=== PATIENT | male | born 1935 | race Caucasian/White ===

== ENCOUNTER 2020-03-28 22:27 | Inpatient (IN) | payer OTHER ==
[~2020-03-28] VITALS: Ht 165.1 cm; Wt 91.0 kg
[2020-03-29 04:20] LABS: Urine Bacteria NONE SEEN /hpf (None Seen); Urine Blood Negative /uL (Negative); Urine Mucus FEW (None Seen); Urine Specific Gravity 1.019 (1.001-1.035); Urine WBC <1 /hpf (0 - 3)
[2020-03-29 06:15] LABS: Basophils # (auto) 0.1 10 ^3/uL (0-0.2); Basophils % (auto) 1.5 % (0.0-2.0); Eosinophils # (auto) 0.1 10 ^3/uL (0-0.8); Eosinophils % (auto) 1.7 % (0.0-7.0); Hematocrit 49.3 % (41.0-53.0); Hemoglobin 16.6 g/dL (13.5-17.5); Lymphocytes # (auto) 1.1 10 ^3/uL (0.4-5.4); Lymphocytes % (auto) 18.6 % (10.0-50.0); Mean Corpuscular Hemoglobin 31.3 pg (28.0-32.0); Mean Corpuscular Hgb Conc. 33.7 g/dL (32.0-36.0); Mean Corpuscular Volume 92.8 fL (80.0-100.0); Monocytes # (auto) 0.6 10 ^3/uL (0-1.3); Monocytes % (auto) 10.3 % (0.0-12.0); Neutrophils # (auto) 4.2 10 ^3/uL (1.6-8.6); Neutrophils % (auto) 67.9 % (37.0-80.0); Platelet Count (auto) 202 10^3/uL (140-450); Red Blood Cells 5.31 10^6/uL (4.5-5.90); Red Cell Distribution Width 14.5 % (11.8-14.3); White Blood Cell 6.2 10^3/uL (4.4-10.8)
[2020-03-29 06:45] LABS: Albumin 3.6 g/dL (3.4-5.0); Anion Gap 4 (5-15); Blood Urea Nitrogen 30 mg/dL (7-18); Calcium 8.8 mg/dL (8.5-10.1); Carbon Dioxide 27 mmol/L (21-32); Chloride 99 mmol/L (98-107); Glucose 136 mg/dL (74-106); Potassium 3.8 mmol/L (3.5-5.1); Sodium 130 mmol/L (136-145)
[2020-03-29 06:50] LABS: Alanine Aminotransferase 10 U/L (16-61); Alkaline Phosphatase 70 U/L (45-117); Aspartate Aminotransferase 20 U/L (15-37); BUN/Creatinine Ratio 22.6; Bilirubin, Total 1.3 mg/dL (0.2-1.0); GFR African American 66 mL/min; GFR Non-African American 55 mL/min; Total Protein 7.2 g/dL (6.4-8.2)
[2020-03-29] MEDS ORDERED: ACETAMINOPHEN 325 MG TAB PO PRN (14:30)
[2020-03-29] MEDS ORDERED: HYDROcodone-ACET 5/325MG TAB PO PRN (14:30)
[2020-03-29] MEDS ORDERED: DOCUSATE SOD 100 MG CAP PO PRN (14:30)
[2020-03-29] MEDS ORDERED: MORPHINE SULF INJ 2 MG/ML SYRINGE 1ML IV PRN ×2 (14:30)
[2020-03-29] MEDS ORDERED: NITROGLYCERIN 0.4 MG SL TAB SL PRN ×2 (14:30)
[2020-03-29] MEDS ORDERED: ALUM & MAG HYDROX-SIMETH LIQ(MAALOX) 30 ML PO PRN (14:30)
[2020-03-29] MEDS ORDERED: ONDANSETRON HCL 4 MG/2 ML VIAL IV PRN ×2 (14:30)
[2020-03-29] MEDS ORDERED: LORazepam 0.5 MG TAB PO PRN ×2 (14:30)
--- NOTE | 2020-03-29 16:35 | NUR ---
Telemetry admit from ER: MAGALIS COTTER admitted to Telemetry unit after SBAR received. Patient oriented to ATIYA POTTS, RN primary RN, unit, room, bed, and unit policies regarding patient care and visiting hours. Patient now on continuous telemetry monitoring, tele box # [id number]. Patient weighed by bedscale and encouraged to call if they need something. All questions and concerns addressed, patient verbalized understanding.
[2020-03-29 17:00] VITALS: BP 157/78
[2020-03-29] MEDS ORDERED: VITAMINS A & D (TOPICAL) OINT 5GM TOP ONE (17:00)
[2020-03-29] MEDS ORDERED: FUROSEMIDE 20 MG/2 ML VIAL IV ONE (17:00)
[2020-03-29] MEDS ORDERED: hydrALAZINE HCL 20 MG/ML VL IV PRN (17:00)
[2020-03-29] MEDS ORDERED: SODIUM CHLORIDE 0.9% 1,000 ML IV SCH (17:00)
[2020-03-29] MEDS ORDERED: METOPROLOL SUCCINATE XL 50 MG TAB PO ONE (17:00)
[2020-03-29] MEDS ORDERED: CARB25TA3 PO (17:43)
--- NOTE | 2020-03-29 17:48 | NUR ---
POM taken to pharmacy.
[2020-03-29 18:10] LABS: Urine WBC None Seen /hpf (0 - 3)
[2020-03-29 18:32] LABS: Urine Bacteria NONE SEEN /hpf (None Seen); Urine Blood Negative /uL (Negative); Urine Specific Gravity 1.018 (1.001-1.035)
[2020-03-29] MEDS: CARBIDOPA W LEVODOPA 25/100mg TABLET PO SCH ×2 (18:44→21:56)
[2020-03-29 18:49] LABS: Amphetamine Screen, Urine NEGATIVE (NEGATIVE); Barbiturate Scree,Urine NEGATIVE (NEGATIVE); Benzodiazephine Screen, Urine NEGATIVE (NEGATIVE); Cannabinoid Screen, Urine NEGATIVE (NEGATIVE); Cocaine Screen, Urine NEGATIVE (NEGATIVE); Opiate Scree,Urine NEGATIVE (NEGATIVE); Phencyclidine Screen, Urine NEGATIVE (NEGATIVE)
--- NOTE | 2020-03-29 19:11 | NUR ---
CLOSING NOTE: Patient resting in bed. No S/S of distress at this time. Bed alarm activated for patient safety. Care endorsed to NOC RN.
[2020-03-29 19:38] LABS: Cholesterol 152 mg/dL (< 200); HDL Cholesterol 35 mg/dL (40-59); LDL Cholesterol 108 mg/dL (< 100); Triglycerides 143 mg/dL (< 150)
--- NOTE | 2020-03-29 19:38 | NUR ---
Opening Shift Note Received report and assumed care of patient. Patient is awake and alert. No signs or symptoms of distress noted. Instructed patient on plan of care and to call for assistance as needed. Will continue to monitor.
[2020-03-29] MEDS: SODIUM CHLOR 0.9% PF (SALINE LOCK) 10ML VIAL/SYR IV SCH (21:56)
[2020-03-29] MEDS: ATORVASTATIN 20 MG TAB PO SCH (21:56)
[2020-03-29] MEDS: TERAZOSIN HCL 1 MG CAP PO SCH (21:57)
[2020-03-29] MEDS: CARVEDILOL 3.125 MG TAB PO SCH (22:00)
--- NOTE | 2020-03-29 23:00 | NUR ---
Blood Pressure Medication Held Patient's blood pressure 150/66, HR 66. After administration of terazosin 2mg PO per MD order, blood pressure reassessed to be 109/62, HR 64. Held Coreg 6.25mg PO to prevent further decrease in blood pressure and heart rate. Per patient, he denies taking blood pressure or heart rate medications at home. Will continue to monitor.
[2020-03-29 23:49] VITALS: BP 160/92
--- NOTE | 2020-03-30 00:12 | NUR ---
IV removal/insertion Patient accidently removed 22g IV to the Right forearm. Catheter tip fully intact. Pressure dressing applied to site. NOTE:Inserted 22g IV to the Right hand. Patient tolerated well.
[2020-03-30 05:32] VITALS: BP 149/77
[2020-03-30] MEDS ORDERED: FUROSEMIDE 20 MG/2 ML VIAL IV SCH (06:00)
[2020-03-30] MEDS: CARBIDOPA W LEVODOPA 25/100mg TABLET PO SCH ×4 (06:10→21:33)
[2020-03-30] MEDS: SODIUM CHLOR 0.9% PF (SALINE LOCK) 10ML VIAL/SYR IV SCH ×3 (06:10→21:58)
[2020-03-30 06:27] LABS: Basophils # (auto) 0 10 ^3/uL (0-0.2); Basophils % (auto) 0.5 % (0.0-2.0); Eosinophils # (auto) 0.1 10 ^3/uL (0-0.8); Hematocrit 46.9 % (41.0-53.0); Hemoglobin 15.8 g/dL (13.5-17.5); Lymphocytes % (auto) 17.1 % (10.0-50.0); Mean Corpuscular Hemoglobin 31.2 pg (28.0-32.0); Mean Corpuscular Hgb Conc. 33.7 g/dL (32.0-36.0); Mean Corpuscular Volume 92.5 fL (80.0-100.0); Monocytes # (auto) 0.7 10 ^3/uL (0-1.3); Monocytes % (auto) 11.1 % (0.0-12.0); Neutrophils # (auto) 4.1 10 ^3/uL (1.6-8.6); Neutrophils % (auto) 69.3 % (37.0-80.0); Platelet Count (auto) 183 10^3/uL (140-450); Red Blood Cells 5.07 10^6/uL (4.5-5.90); Red Cell Distribution Width 14.5 % (11.8-14.3); White Blood Cell 5.9 10^3/uL (4.4-10.8)
[2020-03-30 06:42] LABS: INR 1.09 (0.9-1.15); Potassium 3.6 mmol/L (3.5-5.1)
[2020-03-30 06:53] LABS: Albumin 3.3 g/dL (3.4-5.0); Bilirubin, Total 1.4 mg/dL (0.2-1.0); Calcium 8.5 mg/dL (8.5-10.1); Magnesium 2.5 mg/dL (1.6-2.6); Phosphorus 2.8 mg/dL (2.5-4.90); Total Protein 6.6 g/dL (6.4-8.2)
[2020-03-30 09:00] VITALS: BP 139/77
[2020-03-30] MEDS ORDERED: VITAMINS A & D (TOPICAL) OINT 5GM TOP PRN (10:00)
[2020-03-30] MEDS ORDERED: DOCUSATE SOD 100 MG CAP PO SCH (10:00)
[2020-03-30] MEDS ORDERED: LISINOPRIL 5 MG TAB PO SCH ×2 (10:00)
[2020-03-30] MEDS: CHOLECALCIFEROL (VITD3) 1,000IU=25mCg TAB PO SCH (10:37)
[2020-03-30] MEDS: ENOXAPARIN SOD 40 MG/0.4 ML SYRINGE SC SCH (10:37)
[2020-03-30] MEDS: CARVEDILOL 3.125 MG TAB PO SCH ×2 (10:38→21:34)
[2020-03-30] MEDS: CLOPIDOGREL BISULFATE 75 MG TAB PO SCH (10:39)
[2020-03-30] MEDS: FINASTERIDE 5 MG TAB PO SCH (10:39)
[2020-03-30] MEDS: ASPirin 81 mg TAB PO SCH (10:40)
[2020-03-30 12:40] VITALS: BP 121/85
[2020-03-30] MEDS ORDERED: TERA1CAP33 PO (12:45)
[2020-03-30] MEDS ORDERED: LOSA-39 PO (12:46)
[2020-03-30] MEDS ORDERED: OMEP20TA PO (12:47)
[2020-03-30 17:00] VITALS: BP 128/73
--- NOTE | 2020-03-30 20:00 | NUR ---
Opening Shift Note Assumed care of patient, awake and alert. No S/S of distress/SOB or pain. Instructed on POC and to call for assist PRN, will continue to monitor for changes Q1hr and PRN.Advised no food or drink after midnight for stress test tomorrow.
[2020-03-30] MEDS: ATORVASTATIN 20 MG TAB PO SCH (21:33)
[2020-03-30] MEDS: TERAZOSIN HCL 1 MG CAP PO SCH (21:58)
[2020-03-30 22:00] VITALS: BP 146/80
--- NOTE | 2020-03-31 04:00 | NUR ---
IV insertion IV access obtained, via clean sterile technique by inserting 22 gauge catheter at left hand after attempt. IV secured properly. No trauma to site. Patient tolerated well.
[2020-03-31 05:00] VITALS: BP 147/78
[2020-03-31] MEDS: SODIUM CHLOR 0.9% PF (SALINE LOCK) 10ML VIAL/SYR IV SCH ×3 (05:08→22:24)
[2020-03-31] MEDS: CARBIDOPA W LEVODOPA 25/100mg TABLET PO SCH ×4 (05:08→22:19)
[2020-03-31 07:17] LABS: Potassium 3.8 mmol/L (3.5-5.1)
[2020-03-31 07:30] LABS: Calcium 8.7 mg/dL (8.5-10.1)
--- NOTE | 2020-03-31 07:30 | NUR ---
Opening Shift Note Assumed care of patient, awake, alert,and oriented. No S/S of distress/SOB or pain. Bed in lowest/locked position, bed rails up x2, call light within reach. Instructed on POC and to call for assist PRN. Will continue to monitor for changes Q1hr and PRN.
--- NOTE | 2020-03-31 07:31 | NUR ---
Care report given to Vaz[facility] [place], patient is NPO for stress test today, patient is resting no distress.
[2020-03-31] MEDS ORDERED: ADENOSINE 78 MG in GIVE UN-DILUTED 0 ML IV STA (08:10)
[2020-03-31 08:45] VITALS: BP 130/65
[2020-03-31] MEDS: ENOXAPARIN SOD 40 MG/0.4 ML SYRINGE SC SCH (10:05)
[2020-03-31] MEDS: FUROSEMIDE 20 MG/2 ML VIAL IV SCH (10:05)
[2020-03-31] MEDS: ASPirin 81 mg TAB PO SCH (10:06)
[2020-03-31] MEDS: CARVEDILOL 3.125 MG TAB PO SCH ×2 (10:06→22:20)
[2020-03-31] MEDS: CLOPIDOGREL BISULFATE 75 MG TAB PO SCH (10:06)
[2020-03-31] MEDS: CHOLECALCIFEROL (VITD3) 1,000IU=25mCg TAB PO SCH (10:06)
[2020-03-31] MEDS: FINASTERIDE 5 MG TAB PO SCH (10:07)
[2020-03-31 12:34] VITALS: BP 137/83
[2020-03-31 16:38] VITALS: BP 117/69
--- NOTE | 2020-03-31 19:30 | NUR ---
Opening Shift Note Assumed care of patient, awake and alert. No S/S of distress/SOB or pain. Instructed on POC and to call for assist PRN, patient verbalized understanding, call light within reach, will continue to monitor for changes Q1hr and PRN.
[2020-03-31 22:00] VITALS: BP 119/70
[2020-03-31] MEDS: ATORVASTATIN 20 MG TAB PO SCH (22:19)
[2020-03-31] MEDS: TERAZOSIN HCL 1 MG CAP PO SCH (22:20)
--- NOTE | 2020-04-01 02:30 | NUR ---
Patient had a heart rate in the 30's to 40's. Checked patient, no complains of chest pain or SOB. V/S taken BP 135/58, O2 Sat 94% room air, will continue to monitor
[2020-04-01 05:00] VITALS: BP 114/64
--- NOTE | 2020-04-01 05:18 | NUR ---
Updated hospitalist Ro on patient's status, no new order at this time, will continue to monitor
[2020-04-01] MEDS: CARBIDOPA W LEVODOPA 25/100mg TABLET PO SCH ×2 (05:49→12:07)
[2020-04-01] MEDS: SODIUM CHLOR 0.9% PF (SALINE LOCK) 10ML VIAL/SYR IV SCH ×2 (05:50→14:00)
[2020-04-01 09:00] VITALS: BP 145/79
[2020-04-01] MEDS: FUROSEMIDE 20 MG/2 ML VIAL IV SCH (09:48)
[2020-04-01] MEDS: FINASTERIDE 5 MG TAB PO SCH (09:48)
[2020-04-01] MEDS: CHOLECALCIFEROL (VITD3) 1,000IU=25mCg TAB PO SCH (09:49)
[2020-04-01] MEDS: ASPirin 81 mg TAB PO SCH (09:58)
[2020-04-01] MEDS: CARVEDILOL 3.125 MG TAB PO SCH (09:58)
[2020-04-01] MEDS: CLOPIDOGREL BISULFATE 75 MG TAB PO SCH (09:59)
[2020-04-01] MEDS: ENOXAPARIN SOD 40 MG/0.4 ML SYRINGE SC SCH (09:59)
--- NOTE | 2020-04-01 10:09 | NUR ---
Pt requests PT treatment later, stating he does not want to leave the room because he is waiting on his to call. Will attempt later.
[2020-04-01] MEDS ORDERED: FURO20TA3 PO (10:48)
[2020-04-01] MEDS ORDERED: ATOR20TA50 PO (10:48)
[2020-04-01] MEDS ORDERED: ASPI81CH43 PO (10:48)
[2020-04-01 13:00] VITALS: BP 118/64
--- NOTE | 2020-04-01 13:47 | NUR ---
Medication Held Held the patient's Coreg this AM due to his periods of bradycardia. The patient's HR dropped to the 30s when he was sleeping. He dropped off and on to the 40-50s for his HR this shift. Dr. Goyal aware of the situation. Said she would D/C the Coreg.
[2020-04-01 15:56] VITALS: BP 118/64
[2020-04-01 17:00] VITALS: BP 123/64
--- NOTE | 2020-04-01 18:58 | NUR ---
Patient Discharged The patient received the order to be discharged. prepared him for discharge. Gathered and finalized paperwork, reviewed it with the patient who then signed the discharge paperwork. Escorted the patient out via wheel chair at 1735hrs.
== END 2020-04-01 17:35 | disposition home or self-care (01) | DRG 291 ==
LOC: EDBD 22:27 → ER 22:32 → TELE 22:33 → EDBD 22:33 → TELE-WESTW 03-29 16:41
PROVIDERS: ADMIT Hospitalist; ATTEND Internal Medicine
DX: I13.0 Hypertensive heart and chronic kidney disease with heart failure and stage 1 through stage 4 chronic kidney disease, or unspecified chronic kidney disease (principal); I50.33 Acute on chronic diastolic (congestive) heart failure; E87.1 Hypo-osmolality and hyponatremia; R80.9 Proteinuria, unspecified; E66.9 Obesity, unspecified; B02.9 Zoster without complications; I25.10 Atherosclerotic heart disease of native coronary artery without angina pectoris; E78.5 Hyperlipidemia, unspecified; N18.3 Chronic kidney disease, stage 3 (moderate); E11.22 Type 2 diabetes mellitus with diabetic chronic kidney disease; R00.1 Bradycardia, unspecified; C61 Malignant neoplasm of prostate; E11.65 Type 2 diabetes mellitus with hyperglycemia; I44.0 Atrioventricular block, first degree; G20 Parkinson's disease; N40.0 Benign prostatic hyperplasia without lower urinary tract symptoms; Z79.84 Long term (current) use of oral hypoglycemic drugs; Z95.1 Presence of aortocoronary bypass graft; Z90.49 Acquired absence of other specified parts of digestive tract; Z68.34 Body mass index [BMI] 34.0-34.9, adult; Z88.0 Allergy status to penicillin
CPT/HCPCS: 36415; 70450; 71045; 78452; 80048; 80053; 80061; 80307; 81001; 83036; 83735; 83880; 84100; 84484; 85025; 85610; 85730; 87040; 87086; 93005; 93017; 93306; 97163; 97530; G0378; J0153